=== PATIENT | female | born 1950 | race Caucasian/White ===

== ENCOUNTER 2018-10-03 13:00 | Emergency (ER) | payer OTHER ==
[2018-10-03 13:23] VITALS: BP 114/75; PULSE 88; TEMP 98.4; BMI 31.9
== END 2018-10-03 15:22 | disposition home or self-care (01) ==
LOC: FER 13:00
DX: R11.0 Nausea (principal); I10 Essential (primary) hypertension; E11.9 Type 2 diabetes mellitus without complications; K21.9 Gastro-esophageal reflux disease without esophagitis; K76.0 Fatty (change of) liver, not elsewhere classified; Z79.84 Long term (current) use of oral hypoglycemic drugs
CPT/HCPCS: 99281-25